=== PATIENT | female | born 1970 | race Caucasian/White ===

== ENCOUNTER 2022-07-11 16:21 | Inpatient (IN) | payer MEDICAID ==
[~2022-07-11] VITALS: Ht 157.5 cm; Wt 72.6 kg
[2022-07-11 16:40] VITALS: BP_SYST 129
[2022-07-11 17:43] LABS: BASOPHILS # (AUTO) 0.2 K/uL (0.0-0.2); BASOPHILS % (AUTO) 1.1 % (0.0-2.0); EOSINOPHILS # (AUTO) 0.1 K/uL (0.0-0.4); EOSINOPHILS % (AUTO) 0.6 % (0.0-4.0); HEMATOCRIT 33.4 % (36-48); HEMOGLOBIN 11.1 g/dL (12.0-16.0); LYMPHOCYTES # (AUTO) 3.2 K/uL (1.0-5.5); LYMPHOCYTES % (AUTO) 18.2 % (20.5-51.5); MEAN CORPUSCULAR HEMOGLOBIN 28 pg (27-31); MEAN CORPUSCULAR HGB CONC 33 % (32-36); MEAN CORPUSCULAR VOLUME 84 fL (79.0-98.0); MONOCYTES # (AUTO) 1.3 K/uL (0.0-1.0); MONOCYTES % (AUTO) 7.3 % (1.7-9.3); NEUTROPHILS # (AUTO) 12.7 K/uL (1.8-7.7); NEUTROPHILS % (AUTO) 72.8 % (40.0-70.0); PLATELET COUNT (AUTO) 158 K/uL (130-430); RED BLOOD CELL COUNT(AUTO) 3.99 MIL/uL (4.2-6.2); RED CELL DISTRIBUTION WIDTH 14.8 % (9.0-15.0); WHITE BLOOD COUNT (AUTO) 17.5 K/uL (4.8-10.8)
[2022-07-11 18:01] LABS: ALBUMIN 3.1 g/dL (3.4-4.8); CALCIUM 8.4 mg/dL (8.4-11.0); CREATININE 0.66 mg/dL (0.55-1.30); TOTAL BILIRUBIN 0.4 mg/dL (0.0-1.0)
[2022-07-11 18:22] LABS: C-REACTIVE PROTEIN QUANT 10.9 mg/dL (0-0.5)
[2022-07-11] MEDS ORDERED: CLINDAMYCIN 600 mg/50mL D5W 50 ML IV ONE ×2 (19:15→22:30)
[2022-07-11] MEDS ORDERED: ACETAMINOPHEN 500 MG TABLET PO PRN (22:30)
[2022-07-11] MEDS: HYDROcodone/ACETAMIN 5-325 MG TAB (NORCO/ VICODIN) PO PRN (22:47)
[2022-07-12 04:01] VITALS: BP_SYST 136
[2022-07-12] MEDS: CLINDAMYCIN 300 MG/50 ML D5W 50 ML IV SCH ×5 (05:01→23:59)
[2022-07-12 08:00] VITALS: BP_SYST 122
[2022-07-12] MEDS ORDERED: POTASSIUM CHLORIDE 20 MEQ TAB.PRT.SR PO ONE (10:30)
[2022-07-12] MEDS ORDERED: NOR10 PO (12:11)
[2022-07-12 12:13] VITALS: BP_SYST 113
[2022-07-12] MEDS ORDERED: ESOM40CA PO (12:13)
[2022-07-12] MEDS ORDERED: TAMO20TA4 PO (12:14)
[2022-07-12] MEDS ORDERED: VENL37.55 PO (12:14)
[2022-07-12] MEDS ORDERED: CEFEPIME 1 GM in D5W 50 ML IV ONE (13:00)
[2022-07-12 16:33] VITALS: BP_SYST 121
[2022-07-12 20:00] VITALS: BP_SYST 134
[2022-07-12] MEDS: CEFEPIME 1 GM in D5W 50 ML IV SCH (20:58)
[2022-07-12] MEDS: HYDROcodone/ACETAMIN 5-325 MG TAB (NORCO/ VICODIN) PO PRN (20:59)
[2022-07-13] VITALS: BP_SYST 114
[2022-07-13] MEDS: CLINDAMYCIN 300 MG/50 ML D5W 50 ML IV SCH ×4 (06:09→23:31)
[2022-07-13 07:58] VITALS: BP_SYST 147
[2022-07-13] MEDS: CEFEPIME 1 GM in D5W 50 ML IV SCH ×2 (09:07→20:03)
[2022-07-13 10:00] LABS: BASOPHILS % (AUTO) 0.7 % (0.0-2.0); EOSINOPHILS # (AUTO) 0.3 K/uL (0.0-0.4); EOSINOPHILS % (AUTO) 4.9 % (0.0-4.0); HEMATOCRIT 35.8 % (36-48); HEMOGLOBIN 11.7 g/dL (12.0-16.0); LYMPHOCYTES # (AUTO) 1.9 K/uL (1.0-5.5); LYMPHOCYTES % (AUTO) 35.2 % (20.5-51.5); MEAN CORPUSCULAR HEMOGLOBIN 28 pg (27-31); MEAN CORPUSCULAR HGB CONC 33 % (32-36); MEAN CORPUSCULAR VOLUME 85 fL (79.0-98.0); MONOCYTES # (AUTO) 0.7 K/uL (0.0-1.0); MONOCYTES % (AUTO) 13.2 % (1.7-9.3); NEUTROPHILS # (AUTO) 2.5 K/uL (1.8-7.7); PLATELET COUNT (AUTO) 160 K/uL (130-430); RED CELL DISTRIBUTION WIDTH 15.2 % (9.0-15.0); WHITE BLOOD COUNT (AUTO) 5.4 K/uL (4.8-10.8)
[2022-07-13] MEDS ORDERED: LOSARTAN POTASSIUM 25 MG TABLET PO ONE (10:30)
[2022-07-13 12:02] VITALS: BP_SYST 133
[2022-07-13 16:04] VITALS: BP_SYST 131
[2022-07-13 20:00] VITALS: BP_SYST 130
[2022-07-13] MEDS: LOSARTAN POTASSIUM 25 MG TABLET PO SCH (20:03)
[2022-07-14 00:39] VITALS: BP_SYST 136
[2022-07-14 05:44] LABS: BASOPHILS % (AUTO) 0.7 % (0.0-2.0); EOSINOPHILS # (AUTO) 0.3 K/uL (0.0-0.4); EOSINOPHILS % (AUTO) 4.1 % (0.0-4.0); HEMATOCRIT 35.5 % (36-48); HEMOGLOBIN 11.6 g/dL (12.0-16.0); LYMPHOCYTES # (AUTO) 3.2 K/uL (1.0-5.5); LYMPHOCYTES % (AUTO) 47.4 % (20.5-51.5); MEAN CORPUSCULAR HEMOGLOBIN 28 pg (27-31); MEAN CORPUSCULAR HGB CONC 33 % (32-36); MEAN CORPUSCULAR VOLUME 85 fL (79.0-98.0); MONOCYTES # (AUTO) 0.7 K/uL (0.0-1.0); MONOCYTES % (AUTO) 10.1 % (1.7-9.3); NEUTROPHILS # (AUTO) 2.6 K/uL (1.8-7.7); NEUTROPHILS % (AUTO) 37.7 % (40.0-70.0); PLATELET COUNT (AUTO) 189 K/uL (130-430); RED BLOOD CELL COUNT(AUTO) 4.18 MIL/uL (4.2-6.2); RED CELL DISTRIBUTION WIDTH 14.9 % (9.0-15.0); WHITE BLOOD COUNT (AUTO) 6.8 K/uL (4.8-10.8)
[2022-07-14 06:08] LABS: CALCIUM 8.2 mg/dL (8.4-11.0); CREATININE 0.64 mg/dL (0.55-1.30)
[2022-07-14 08:00] VITALS: BP_SYST 149
[2022-07-14] MEDS: CEFEPIME 1 GM in D5W 50 ML IV SCH ×2 (08:34→21:21)
[2022-07-14] MEDS: LOSARTAN POTASSIUM 25 MG TABLET PO SCH (08:34)
[2022-07-14 12:00] VITALS: BP_SYST 138
[2022-07-14] MEDS ORDERED: HYDROCHLOROTHIAZIDE 12.5 MG CAPSULE (HCTZ) PO ONE (12:30)
[2022-07-14 16:00] VITALS: BP_SYST 139
[2022-07-14 20:30] VITALS: BP_SYST 136
[2022-07-14] MEDS: LOSARTAN POTASSIUM 50 MG TABLET (COZAAR) PO SCH (21:22)
[2022-07-15] VITALS: BP_SYST 146
[2022-07-15 08:00] VITALS: BP_SYST 130
[2022-07-15 08:06] LABS: BASOPHILS % (AUTO) 0.6 % (0.0-2.0); EOSINOPHILS # (AUTO) 0.2 K/uL (0.0-0.4); EOSINOPHILS % (AUTO) 3.3 % (0.0-4.0); HEMATOCRIT 37.9 % (36-48); HEMOGLOBIN 12.4 g/dL (12.0-16.0); LYMPHOCYTES # (AUTO) 3.1 K/uL (1.0-5.5); LYMPHOCYTES % (AUTO) 42.1 % (20.5-51.5); MEAN CORPUSCULAR HEMOGLOBIN 28 pg (27-31); MEAN CORPUSCULAR HGB CONC 33 % (32-36); MEAN CORPUSCULAR VOLUME 85 fL (79.0-98.0); MONOCYTES # (AUTO) 0.7 K/uL (0.0-1.0); NEUTROPHILS # (AUTO) 3.3 K/uL (1.8-7.7); PLATELET COUNT (AUTO) 208 K/uL (130-430); RED BLOOD CELL COUNT(AUTO) 4.48 MIL/uL (4.2-6.2); RED CELL DISTRIBUTION WIDTH 14.9 % (9.0-15.0); WHITE BLOOD COUNT (AUTO) 7.4 K/uL (4.8-10.8)
[2022-07-15 08:12] LABS: CALCIUM 8.8 mg/dL (8.4-11.0); CREATININE 0.72 mg/dL (0.55-1.30)
[2022-07-15] MEDS: HYDROCHLOROTHIAZIDE 12.5 MG CAPSULE (HCTZ) PO SCH (09:31)
[2022-07-15] MEDS: LOSARTAN POTASSIUM 50 MG TABLET (COZAAR) PO SCH ×2 (09:31→21:49)
[2022-07-15] MEDS: CEFEPIME 1 GM in D5W 50 ML IV SCH ×2 (09:32→20:26)
[2022-07-15 11:42] VITALS: BP_SYST 131
[2022-07-15 18:02] VITALS: BP_SYST 134
[2022-07-15 20:00] VITALS: BP_SYST 127
[2022-07-16] VITALS: BP_SYST 139
[2022-07-16 05:56] LABS: BASOPHILS # (AUTO) 0.1 K/uL (0.0-0.2); BASOPHILS % (AUTO) 0.7 % (0.0-2.0); EOSINOPHILS # (AUTO) 0.3 K/uL (0.0-0.4); EOSINOPHILS % (AUTO) 2.7 % (0.0-4.0); HEMATOCRIT 40.1 % (36-48); HEMOGLOBIN 13.2 g/dL (12.0-16.0); LYMPHOCYTES # (AUTO) 3.6 K/uL (1.0-5.5); LYMPHOCYTES % (AUTO) 37.2 % (20.5-51.5); MEAN CORPUSCULAR HEMOGLOBIN 28 pg (27-31); MEAN CORPUSCULAR HGB CONC 33 % (32-36); MEAN CORPUSCULAR VOLUME 84 fL (79.0-98.0); MONOCYTES # (AUTO) 0.9 K/uL (0.0-1.0); NEUTROPHILS # (AUTO) 4.8 K/uL (1.8-7.7); NEUTROPHILS % (AUTO) 50.4 % (40.0-70.0); PLATELET COUNT (AUTO) 232 K/uL (130-430); RED BLOOD CELL COUNT(AUTO) 4.76 MIL/uL (4.2-6.2)
[2022-07-16 06:10] LABS: C-REACTIVE PROTEIN QUANT 0.6 mg/dL (0-0.5); CALCIUM 8.8 mg/dL (8.4-11.0); CREATININE 0.71 mg/dL (0.55-1.30)
[2022-07-16 07:38] LABS: WHITE BLOOD COUNT (AUTO) 9.6 K/uL (4.8-10.8)
[2022-07-16 08:00] VITALS: BP_SYST 134
[2022-07-16 08:14] LABS: ERYTHROCYTE SEDIMENTATION RATE 45 MM/HR (0-20)
[2022-07-16] MEDS: CEFEPIME 1 GM in D5W 50 ML IV SCH (09:08)
[2022-07-16] MEDS: LOSARTAN POTASSIUM 50 MG TABLET (COZAAR) PO SCH (09:08)
[2022-07-16] MEDS: HYDROCHLOROTHIAZIDE 12.5 MG CAPSULE (HCTZ) PO SCH (09:09)
[2022-07-16] MEDS ORDERED: HYDR12.585 PO (14:27)
[2022-07-16] MEDS ORDERED: DOXY100C5 PO (14:27)
[2022-07-16 14:42] VITALS: BP_SYST 122
== END 2022-07-16 21:09 | disposition home or self-care (01) | DRG 383 ==
LOC: SED 16:21 → SMU 20:38
PROVIDERS: ADMIT Internal Medicine; ATTEND Internal Medicine
DX: L03.115 Cellulitis of right lower limb (principal); E44.1 Mild protein-calorie malnutrition; D64.9 Anemia, unspecified; I10 Essential (primary) hypertension; M13.842 Other specified arthritis, left hand; M13.841 Other specified arthritis, right hand; N81.4 Uterovaginal prolapse, unspecified; R73.9 Hyperglycemia, unspecified; Z20.822 Contact with and (suspected) exposure to COVID-19; K21.9 Gastro-esophageal reflux disease without esophagitis; Z90.13 Acquired absence of bilateral breasts and nipples; Z88.8 Allergy status to other drugs, medicaments and biological substances; Z79.899 Other long term (current) drug therapy; Z85.3 Personal history of malignant neoplasm of breast; Z80.3 Family history of malignant neoplasm of breast
CPT/HCPCS: 36415; 73590-TC; 80048; 80053; 83605; 85025; 85651-TC; 86140; 93970; 96365; 99285; J0692; J3490; J7060